=== PATIENT | female | born 1965 | race Two or more races ===

== ENCOUNTER 2024-10-18 18:32 | Emergency (ER) | payer BC ==
[~2024-10-18] VITALS: Ht 162.6 cm; Wt 117.9 kg
[2024-10-18] MEDS ORDERED: MEPERIDINE HCL/PF 50 MG/ML VIAL IM ONE (22:30)
[2024-10-18] MEDS ORDERED: IBU800 MG PO (23:53)
== END 2024-10-19 00:58 | disposition home or self-care (01) ==
LOC: ER 18:34
DX: S52.592A Other fractures of lower end of left radius, initial encounter for closed fracture (principal); W18.39XA Other fall on same level, initial encounter; Y93.89 Activity, other specified; Y92.89 Other specified places as the place of occurrence of the external cause